=== PATIENT | female | born 1985 | race Caucasian/White ===

== ENCOUNTER 2018-10-04 05:07 | Inpatient (IN) | payer OTHER, SELFPAY ==
[2018-10-04] MEDS: Lactated Ringers 1,000 ML 50 ML IV ×2 (05:30→23:06)
[2018-10-04 06:13] VITALS: BMI 40.4
[2018-10-04 06:39] LABS: Absolute Lymphocyte Count 1.31 X10^3/ul (0.83-4.51); Absolute Neutrophil Count 3.6 X10^3/uL (2.0-7.7); Basophil# 0.01 X10^3/uL; Basophil% 0.2 % (0-1); Eosinophil# 0.05 X10^3/uL; Eosinophils% 0.9 % (0-5); Hematocrit 30.6 % (37-47); Lymphocyte # 1.31 X10^3/ul (4.0); Lymphocyte % 23.4 % (19-41); Mean Corp Hgb Conc 32.7 g/gl (32-36); Mean Corpuscular Hgb 30.2 pg (27.0-32.0); Mean Corpuscular Volume 92.4 fL (81-99); Mean Platelet Vol. 11.1 fl (6.2-12.0); Monocyte# 0.61 X10^3/uL; Monocyte% 10.9 % (0-10); Neutrophil % 64.2 % (47-70); Platelet Count 213 K/mm3 (150-450); RBC Distribution Width CV 13.7 % (11.6-14.6); RBC Distribution Width SD 45.8 fl (35.1-43.9); Red Blood Count 3.31 M/mm3 (4.2-5.4); White Blood Count 5.6 K/mm3 (4.4-11.0)
[2018-10-04 06:48] LABS: POSITIVE COUNT NO; POSITIVE DIFFERENTIAL NO; POSITIVE MORPHOLOGY NO
[2018-10-04] MEDS: miSOPROStol 25 MCG TABLET VAGINAL ×3 (07:56→15:54)
--- NOTE | 2018-10-04 09:00 | HP.PCM_ITS ---
- Problem List (1) Polyhydramnios affecting in third trimester Status: Acute (2) Edema during in third trimester Status: Acute History Date of Admission: 10/04/18 Final KT: 10/09/18 Final KT Source: US <20 weeks Gestational age: 39 Weeks and 2 Days History of this : This is a 33 year-old, G [1], P [0], at 39 weeks gestational age who presents for IOL for polyhydramnios and severe edema in 3rd trimester . Patient course started at 5 weeks x 21 visits. Patient reported rapidly increased swelling and weight gain in last month of - though she denies MANN, scotoma, SOB< chest pain, dizziness or RUQ pain. course has been uncomplicated. Allergies shellfish derived Allergy (Verified 10/04/18 06:09) Hives gluten Adverse Reaction (Verified 10/04/18 06:10) Diarrhea Home Medications: Home Medications Vits [Prenatabs FA] 1 tablet PO DAILY 10/04/18 Smoking Status: Former smoker Alcohol: None Number of Fetus(es): 1 Heart Tracing: Baseline 120, moderate variability, + accels, no decels TOCO Analysis: Uterine irritability and irregular ctx noted, not easily palpable History Past Pregnancies: Past Pregnancies Delivery Date Name GA/Weeks Outcome Route Weight Infant Gender Labor Length Anesthesia Delivery Location Provider FOB Labs: See [facility] - O+ bloodtype. GBS Negative. OB Panel WNL. STI screening and urine culture negative Expected Infant Delivery Method: Spontaneous Vaginal Describe any other labor & delivery plans:: [facility] though is open to pain medications if she requests them Number of Visits: 21 Review of Systems Constitutional: Denies: Chills, Fever, Weight Change HEENT: Denies: Head Aches, Sinus Congestion, Sinus Drainage Cardiovascular: Reports: Edema - +3/+3 in LE up to mid-thigh, generalized +1 edema noted. Denies: Chest Pain, Palpitations Respiratory: Denies: Cough, Shortness of breath at rest, Sputum production Gastrointestinal: Denies: Abdominal Pain, Nausea, Vomiting Genitourinary: Denies: Dysuria Gynecological: Denies: Vaginal bleeding, Vaginal discharge Musculoskeletal: Denies: Joint Pain, Joint Tenderness Skin: Denies: Rash, Wounds Neurological: Denies: Numbness, Tingling, Focal weakness Psychiatric: Denies: Anxiety, Depression, Homicidal Ideations, Suicidal Ideations Hematologic/ Lymphatic: Denies: Easy Bruising, Easy Bleeding Physical Exam Vitals: See nursing note for vital signs - Afebrile, Normotensive General: Alert, Oriented x3, No apparent distress HEENT: Atraumatic, Normocephalic. Negative for: Thyromegaly, Lymphadenopathy Cardiovascular: Regular rate, Regular Rhythm Lungs: Clear to auscultation, Normal air movement Abdomen: Bowel Sounds Present, Soft, Non Tender, Gravid - EFW = 8.5#, Appropriate for Gestational Age Neurological: Cranial nerves II-XII grossly intact, Deep Tendon Reflexes 2+/4 and Symmetrical - + 1 beat clonus bilateral, Neuro grossly intact [employer] SUPERINTENDENT: Normal external genitalia. Negative for: Vulvar lesions Estimated gestational size: Appropriate for gestational size Presentation: Cephalic Cervix Dilation (cm): 1.5 - Per last office exam 10/01/18 Station: -2 Effacement (%): 60 Assessment/Plan All Active Problems Polyhydramnios affecting in third trimester (Acute) Edema during in third trimester (Acute) This is a 33 year-old, G [1], P [0], at 39 weeks gestational age, IOL Polyhydramnios and Severe LE Edema. P: 1) Admit for cytotec IOL per protocol - Cytotec 25mcg PV placed at 0750 by nursing staff. Will redose q 4 hours 2) Consider placing cervical wasserman catheter with next Cytotec dose 3) Dr. Dilan BOWERS back-up physician appraised of plan of care 4) Continue present management Carmelina BELL
--- NOTE | 2018-10-04 12:08 | PCM.PN.OB ---
Patient Problems: Active and Suspected Problems Polyhydramnios affecting in third trimester (Acute) Edema during in third trimester (Acute) Subjective: Patient sitting up in bed, she reports increased frequency of uterine like cramping at this time. Patient denies SROM, denies vaginal bleeding. Reports +FM. Patient desires reassessment of cervix at this time to monitor for cervical change. Objective: VSS, Afebrile FHT baseline 120, moderate variability, + accels, no decels Ctx irregular q 2-5 minutes, mildly palpable SVE = Ext os 2cm, internal os 1.5/60/-2. Cervix posterior. - Physical Exam General: Alert, Oriented x3, Cooperative, No apparent distress HEENT: Atraumatic, Normocephalic Neck: Supple Lungs: Normal air movement Cardiovascular: Regular rate, Regular Rhythm Abdomen: Soft, Non Tender, Appropriate for Gestational Age Extremities: Capillary Refill Less than 3 Seconds, Edema - +2/+2 pitting edema in LE noted, Peripheral Pulses Normal Skin: No rashes, No breakdown Musculoskeletal: No Tenderness to Palpation of Joints or Extremities Neurological: Cranial nerves II-XII grossly intact Psych/Mental Status: Normal Affect, Appropriate Weight: 250 lb 10.649 oz Body Mass Index (BMI) 40.4 Laboratory Tests Past 24 Hrs 10/04/18 10/04/18 06:05 06:05 WBC 5.6 RBC 3.31 L Hgb 10.0 L Hct 30.6 L MCV 92.4 MCH 30.2 MCHC 32.7 RDW 13.7 RDW Differential 45.8 H Plt Count 213 MPV 11.1 Immature Gran % (Auto) 0.400 Neut % (Auto) 64.2 Lymph % (Auto) 23.4 [place] % (Auto) 10.9 H Eos % (Auto) 0.9 Baso % (Auto) 0.2 Absolute Neuts (auto) 3.6 Absolute Lymphs (auto) 1.31 Total Counted Not Reportable Blood Type O POSITIVE Antibody Screen NEGATIVE Medical Necessity - Tobacco Use Smoking Status: Former smoker Assessment/Plan All Active Problems Polyhydramnios affecting in third trimester (Acute) Edema during in third trimester (Acute) 33 y/o @ 39+2 weeks, IOL for Polyhydramnios, Category I FHT P: 1) Continue present management - Cytotec 25mcg PV q 4 hours 2) Patient still choosing to decline placement of cervical wasserman catheter at this time 3) Reassess for cervical change PRN Carmelina Chew COLOR SPECIALIST-CNM
[2018-10-04] MEDS: 0.9% Saline Lock 10 ML Syringe IV (19:58)
--- NOTE | 2018-10-04 20:14 | PN.OBGYN_ITS ---
Patient Problems: Active and Suspected Problems Polyhydramnios affecting in third trimester (Acute) Edema during in third trimester (Acute) Subjective: Patient sitting up in bed at this time, reports that contractions are starting to feel stronger and more regular. Patient desires a cervical recheck at this time. remains at bedside providing support for patient. Objective: VSS, Afebrile FHT baseline 120, moderate variability, + accels, no decels Ctx q 2-3 minutes, lasting 60 seconds, palpating moderately strong SVE = 3-4/80/-1 - Physical Exam General: Alert, Oriented x3, Cooperative HEENT: Atraumatic, Normocephalic Neck: Supple Lungs: Normal air movement Cardiovascular: Regular rate, No murmurs Abdomen: Non Tender, Gravid Extremities: Edema - +2/+2 reflexes in LE Neurological: Cranial nerves II-XII grossly intact, Deep Tendon Reflexes 2+/4 and Symmetrical Psych/Mental Status: Normal Affect, Appropriate Weight: 250 lb 10.649 oz Body Mass Index (BMI) 40.4 Laboratory Tests Past 24 Hrs 10/04/18 10/04/18 06:05 06:05 WBC 5.6 RBC 3.31 L Hgb 10.0 L Hct 30.6 L MCV 92.4 MCH 30.2 MCHC 32.7 RDW 13.7 RDW Differential 45.8 H Plt Count 213 MPV 11.1 Immature Gran % (Auto) 0.400 Neut % (Auto) 64.2 Lymph % (Auto) 23.4 [place] % (Auto) 10.9 H Eos % (Auto) 0.9 Baso % (Auto) 0.2 Absolute Neuts (auto) 3.6 Absolute Lymphs (auto) 1.31 Total Counted Not Reportable Blood Type O POSITIVE Antibody Screen NEGATIVE Medical Necessity - Tobacco Use Smoking Status: Former smoker Assessment/Plan All Active Problems Polyhydramnios affecting in third trimester (Acute) Edema during in third trimester (Acute) 33 y/o @ 39+2 weeks, IOL for Polyhydramnios, Category I FHT P: 1) Patient has made very good cervical change and esperanza regularly - plan for expectant management at this time 2) If contractions space out >4-5 minutes apart, will start IV pitocin 3) Reassess cervix PRN for cervical change with change in maternal or status Carmelina Chew FOREIGN CAR MECHANIC-CNM
[2018-10-04] MEDS: Ondansetron 4 MG/2 ML Vial IV (22:45)
[2018-10-04] MEDS: fentaNYL-bupivacaine (epidural) 100 ML BAG EPIDURAL (23:27)
--- NOTE | 2018-10-04 23:40 | PN.OBGYN_ITS ---
Patient Problems: Active and Suspected Problems Polyhydramnios affecting in third trimester (Acute) Edema during in third trimester (Acute) Subjective: Patient moaning with contractions, SROM for clear fluid occurred 2111. Soon after patient reports strong regular contractions started with increasing pressure and pain sensations. Patient's continues at bedside to provide support. Patient requested epidural due to intensity and pain of contractions; epidural placed without difficulty. Patient tolerated procedure well. Objective: VSS, Afebrile FHT baseline 120, moderate variability, + accels, no decels Ctx q 2-4 minutes, palpate moderately strong SVE = 4-5/90/-1 at last exam. Cervix midposition to posterior - Physical Exam General: Alert, Oriented x3, Cooperative HEENT: Atraumatic, Normocephalic Neck: Supple Abdomen: Soft, Non Tender Extremities: Edema Psych/Mental Status: Normal Affect, Appropriate - +2/+2 pitting edema in LE Weight: 250 lb 10.649 oz Body Mass Index (BMI) 40.4 Laboratory Tests Past 24 Hrs 10/04/18 10/04/18 06:05 06:05 WBC 5.6 RBC 3.31 L Hgb 10.0 L Hct 30.6 L MCV 92.4 MCH 30.2 MCHC 32.7 RDW 13.7 RDW Differential 45.8 H Plt Count 213 MPV 11.1 Immature Gran % (Auto) 0.400 Neut % (Auto) 64.2 Lymph % (Auto) 23.4 [place] % (Auto) 10.9 H Eos % (Auto) 0.9 Baso % (Auto) 0.2 Absolute Neuts (auto) 3.6 Absolute Lymphs (auto) 1.31 Total Counted Not Reportable Blood Type O POSITIVE Antibody Screen NEGATIVE Medical Necessity - Tobacco Use Smoking Status: Former smoker Assessment/Plan All Active Problems Polyhydramnios affecting in third trimester (Acute) Edema during in third trimester (Acute) 33 y/o @ 39+2 wks, IOL for Polyhydramnios, Active Labor, Category I FHT P: 1) Epidural placed, will place wasserman catheter once patient is comfortable 2) Continue expectant management at this time 3) Reassess for cervical change PRN with change to maternal or status 4) Consider initiation of pitocin augmentation IV per protocol if inadequate contractions noted Carmelina Chew APRN-CECLEIA
[2018-10-05] MEDS: fentaNYL-bupivacaine (epidural) 100 ML BAG EPIDURAL (03:33)
--- NOTE | 2018-10-05 05:00 | PCM.PN.OB ---
Patient Problems: Active and Suspected Problems Polyhydramnios affecting in third trimester (Acute) Edema during in third trimester (Acute) Subjective: Page received from nurse, repeat SVE done and patient was found to be complete at 0339. Patient to labor down and just started pushing now. Patient continues to remain comfortable with epidural at this time. Objective: FHT baseline 120, moderate variability, + accels, no decels Ctx q 2-3 minutes, palpate moderate to strong SVE = C/C/0 to +1 - Physical Exam General: Alert, Oriented x3 Weight: 250 lb 10.649 oz Body Mass Index (BMI) 40.4 Laboratory Tests Past 24 Hrs 10/04/18 10/04/18 06:05 06:05 WBC 5.6 RBC 3.31 L Hgb 10.0 L Hct 30.6 L MCV 92.4 MCH 30.2 MCHC 32.7 RDW 13.7 RDW Differential 45.8 H Plt Count 213 MPV 11.1 Immature Gran % (Auto) 0.400 Neut % (Auto) 64.2 Lymph % (Auto) 23.4 [place] % (Auto) 10.9 H Eos % (Auto) 0.9 Baso % (Auto) 0.2 Absolute Neuts (auto) 3.6 Absolute Lymphs (auto) 1.31 Total Counted Not Reportable Blood Type O POSITIVE Antibody Screen NEGATIVE Medical Necessity - Tobacco Use Smoking Status: Former smoker Assessment/Plan All Active Problems Polyhydramnios affecting in third trimester (Acute) Edema during in third trimester (Acute) 33 y/o @ 39+3 weeks, Second Stage of Labor, Category I FHT P: 1) Proceed with pushing at this time 2) Anticipate Carmelina Chew CHEESE PANCAKE ROLLER-CNM
--- NOTE | 2018-10-05 05:07 | PN.OBGYN_ITS ---
Patient Problems: Active and Suspected Problems Polyhydramnios affecting in third trimester (Acute) Edema during in third trimester (Acute) Subjective: Page received from nurse, repeat SVE done and patient was found to be complete at 0339. Patient to labor down and just started pushing now. Patient continues t o remain comfortable with epidural at this time. Objective: FHT baseline 120, moderate variability, + accels, no decels Ctx q 2-3 minutes, palpate moderate to strong SVE = C/C/0 to +1 - Physical Exam General: Alert, Oriented x3 Weight: 250 lb 10.649 oz Body Mass Index (BMI) 40.4 Laboratory Tests Past 24 Hrs 10/04/18 10/04/18 06:05 06:05 WBC 5.6 RBC 3.31 L Hgb 10.0 L Hct 30.6 L MCV 92.4 MCH 30.2 MCHC 32.7 RDW 13.7 RDW Differential 45.8 H Plt Count 213 MPV 11.1 Immature Gran % (Auto) 0.400 Neut % (Auto) 64.2 Lymph % (Auto) 23.4 [place] % (Auto) 10.9 H Eos % (Auto) 0.9 Baso % (Auto) 0.2 Absolute Neuts (auto) 3.6 Absolute Lymphs (auto) 1.31 Total Counted Not Reportable Blood Type O POSITIVE Antibody Screen NEGATIVE Medical Necessity - Tobacco Use Smoking Status: Former smoker Assessment/Plan All Active Problems Polyhydramnios affecting in third trimester (Acute) Edema during in third trimester (Acute) 33 y/o @ 39+3 weeks, Second Stage of Labor, Category I FHT P: 1) Proceed with pushing at this time 2) Anticipate Carmelina Chew APRN-CNRa
[2018-10-05] MEDS: Oxytocin 30 units/NS 500 ml 30 UNITS/500 ML IV.SOLN IV (06:35)
[2018-10-05] MEDS: Lactated Ringers 1,000 ML 50 ML IV (07:35)
--- NOTE | 2018-10-05 08:19 | PCM.PN.BLA ---
Progress Note Addendum: Patient pushing well with urge - 2nd stage pitocin started around 7am. C/C/+2 with mild caput and minimal molding noted. Patient has been pushing on and off for last [address] Dilan BOWERS for back-up OB consultation. Discussed that EFW = 8.5-8.75# and that baby is moving down well with push. Patient is starting to get more fatigued and pushing effort is not as effective as it had been. Pitocin currently at 8 milliunits currently. Discussion to check-up back in at 0900 if baby is not delivered for possible FAVD or VAVD to facilitate delivery of infant. FHT reassuring - category I FHT noted. Will continue to push with patient at this time. Carmelina BELL
--- NOTE | 2018-10-05 08:23 | PN_ITS ---
Progress Note Addendum: Patient pushing well with urge - 2nd stage pitocin started around 7am. C/C/+2 with mild caput and minimal molding noted. Patient has been pushing on and off for last [address] Dilan BOWERS for back-up OB consultation. Discussed that EFW = 8.5-8.75# and that baby is moving down well with push. Patient is starting to get more fatigued and pushing effort is not as effective as it had been. Pitocin currently at 8 milliunits currently. Discussion to check-up back in at 0900 if baby is not delivered for possible FAVD or VAVD to f acilitate delivery of infant. FHT reassuring - category I FHT noted. Will continue to push with patient at this time. Carmelina BELL
[2018-10-05] MEDS: Oxytocin 30 units/NS 500 ml 30 UNITS/500 ML IV.SOLN 334 UNITS IV (09:20)
--- NOTE | 2018-10-05 09:44 | PCM.OPRPT ---
Problem List (1) Polyhydramnios affecting in third trimester Status: Resolved (2) Edema during in third trimester Status: Resolved Report of Operation Date of Procedure: 10/05/18 Pre-Operative Diagnosis: IUP @ 39+ weeks, IOL for Polyhydramnios, Edema of in 3rd trimester Post-Operative Diagnosis: of viable boy baby Surgery/Procedure Performed:: Vaginal Delivery Type of Anesthesia:: Epidural Anesthesiologist: Stephania Domínguez - Admit VTE Documentation VTE Present on Admission: No VTE Pharm Prophylaxis ordered?: No Reason prophylaxis not ordered:: Treatment Not Indicated Vaginal Delivery Maternal Presentation: Medically Indicated Induction Method of Induction: Cytotec Medical Reason for Induction: Maternal Medical Condition: list: - Polyhydramnios Amniotic Membrane Rupture Type: Spontaneous Rupture of Membrane time: 10/04/18 @ 2111 Amniotic Fluid Description: Clear Final KT: 10/09/18 Final KT Source: US <20 weeks Gestational age: 39 Weeks and 3 Days Date of Procedure: 10/05/18 Pre-Operative Diagnosis: IOL @ 39+ weeks for Polyhydramnios, Edema in 3rd trimester Post-Operative Diagnosis: of viable boy baby Surgery/ Procedure Performed: Spontaneous Vaginal Delivery Anesthesiologist: Stephania Domínguez Type of Anesthesia: Epidural Description of Procedure: After pushing on and off for 4 hours, viable delivery of baby boy over intact perineum. Infant head delivered OA, restituted to LLUVIA and then LOT where anterior shoulder easily presented and delivered without difficulty. placed on maternal abdomen where baby had spontaneous cry and respirations. Mouth and nose bulb suctioned. dried and stimulated. Apgars 8 and 9. Umbilical cord clamped and cut once it stopped pulsing, cord blood collection completed secondary to maternal O+ bloodtype. Placenta delivered spontaneously via Casey mechanism intact with 3VC. Placental triage WNL. FF to massage, 3FB below umbilicus and midline. IV pitocin infusing per protocol for active management of the 3rd stage of labor. Upon inspection of vaginal vault, several vaginal side wall abrasions and bilateral periurethral abrasions with good hemostasis. No repair indicated. Sponge count correct. Vaginal sweep negative. Bonding and [id number] initiated. Patient desires to breastfeed. consultation ordered. Presentation: LLUVIA Placental Delivery Description: Spontaneous Placenta Disposition: [facility] Cord Vessel Description: 3 Vessels Cord Entanglement: None Estimated Blood Loss: 350 Infant A gender: Male (1 minute): 8 (5 minute): 9 Episiotomy Description: None Laceration: None Medications given after delivery: IV Pitocin Complications: None
[2018-10-05] MEDS: Oxytocin 30 units/NS 500 ml 30 UNITS/500 ML IV.SOLN 167 UNITS IV (09:47)
--- NOTE | 2018-10-05 10:11 | DCINST_ITS ---
Discharge Diet: No Restrictions Discharge Activity: Return to Normal Activity, May not drive while taking narcotic pain medications., May Shower May resume sexual activity in: 4-6 weeks Additional Activity Instructions:: Nothing in the vagina for 4-6 weeks. You may return to work/school in 6 weeks. Call your doctor if your incision/area has: Continuous Slow Oozing, Sudden Increased Bleeding, Increased Pain/ Swelling, Increased Redness, Foul Smelling Discharge Call your doctor if you observe: Fever of 101 or Higher, Inability to urinate, Inability to have a bowel movement, Using more than one pad per hour Additional Instructions: If you experience any of the following, contact your healthcare provider. * Bleeding that soaks a pad every hour for 2 hours * Fever 100.4 or higher * Unrelieved incision or abdominal pain * Swelling, redness, discharge or bleeding from your incision or episiotomy site * Your incision begins to separate * Problems urinating (including inability to urinate or burning while urinating). * Visual changes * Severe headache * Flu-like symptoms * Pain or redness in one of both of your breasts * Pain, warmth, tenderness or swelling in your legs, especially the calf area * Frequent nausea and vomiting * Symptoms of depression or anxiety If you experience any of the following, call 911 or go to the nearest Emergency Room. * Chest pain * Problems breathing * Seizure activity * Partial or complete paralysis of a body part, slurred speech, weakness or drooping of the face, or a sudden inability to walk or hold your balance Allergies/Adverse Reactions: Allergies shellfish derived Allergy (Verified 10/04/18 06:09) Hives gluten Adverse Reaction (Verified 10/04/18 06:10) Diarrhea Medications to take at Discharge Vits [Prenatabs FA] 1 tablet PO DAILY 10/04/18 Please Follow Up With: Carmelina Chew CNM When: Call to make an appointment with your provider in 2 weeks and 6 weeks . Primary Care Physician: Carmelina Chew CNM [Primary Care Provider] - Test Results: Test results from this visit will be discussed in further detail at your follow- up appointment, if applicable. Proposed Discharge Date: 10/07/18
[2018-10-05] MEDS: Acetaminophen 500 MG Tablet 1000 MG PO (11:27)
[2018-10-05 16:00] VITALS: BP 110/69; PULSE 85; RESP 16; TEMP 37.4
[2018-10-05] MEDS: Ibuprofen 600 MG Tablet PO ×2 (17:24→23:13)
[2018-10-05 18:00] VITALS: BP 121/82; PULSE 100; RESP 16; TEMP 36.9
[2018-10-05 20:10] VITALS: BP 124/78; PULSE 88; RESP 16; TEMP 37; O2SAT 98
[2018-10-06] VITALS: BP 112/67; PULSE 82; RESP 16; TEMP 36.8; O2SAT 99
[2018-10-06] MEDS: Senna/Docusate Sodium 1 Tablet PO ×2 (00:37→20:36)
[2018-10-06 04:10] VITALS: BP 118/80; PULSE 88; RESP 18; TEMP 36.8; O2SAT 98
[2018-10-06 06:28] LABS: Hematocrit 26.5 % (37-47); Hemoglobin 8.6 g/dl (12.0-15.0); Mean Corp Hgb Conc 32.5 g/gl (32-36); Mean Corpuscular Hgb 30.2 pg (27.0-32.0); Mean Platelet Vol. 10.5 fl (6.2-12.0); Platelet Count 174 K/mm3 (150-450); RBC Distribution Width CV 13.8 % (11.6-14.6); RBC Distribution Width SD 46.4 fl (35.1-43.9); Red Blood Count 2.85 M/mm3 (4.2-5.4)
[2018-10-06 06:41] LABS: Scan Indicated on CBC? Y/N NO
[2018-10-06] MEDS: Ibuprofen 600 MG Tablet PO ×3 (06:51→20:36)
[2018-10-06 09:03] VITALS: BP 119/74; PULSE 84; RESP 16; TEMP 37.1; O2SAT 98
--- NOTE | 2018-10-06 10:37 | PCM.PN.OB ---
Subjective: Patient sitting up in bed at this time eating breakfast. Patient and report feelings of being overwhelmed with the amount of providers and staff coming into room this morning over a short period of time. Reports that there has been a lot of information to take in over a short period of time. Patient and may be interested in discharge to home due to feelings of being overwhelmed and feeling they would be able to rest better at home. Patient reports that baby having inconsistent latching - baby has had multiple dirty diapers at this time however. Patient reports continued challenges with getting up out of bed secondary to feeling sore. Patient denies issues with urination, reports + flatus. Notes hesitancy with having a bowel movement. Patient and with many questions in anticipation of desired discharge to home today. Objective: VSS, Afebrile Nipples slightly flat, no ecchymoses or blisters noted bilaterally Abdomen NT x 4 quadrants, FF midline 3FB below umbilicus +2/4 reflexes in LE no clonus, +3/+3 pitting edema in LE Negative Calf Tenderness Scant rubra lochia, perineum intact, no perineal edema noted - Physical Exam General: Alert, Oriented x3, Cooperative HEENT: Atraumatic, Normocephalic Neck: Supple Lungs: Normal air movement Cardiovascular: Regular rate, Regular Rhythm Abdomen: Soft, Non Tender Extremities: Capillary Refill Less than 3 Seconds, Edema Skin: No rashes, No breakdown Musculoskeletal: No Tenderness to Palpation of Joints or Extremities Neurological: Cranial nerves II-XII grossly intact, Deep Tendon Reflexes 2+/4 and Symmetrical - +3/+3 pitting edema in LE, generalized edema in hands and face still noted Psych/Mental Status: Normal Affect, Appropriate Vital Signs Temp Pulse Resp BP Pulse Ox 98.7 F 84 16 119/74 98 10/06/18 09:03 10/06/18 09:03 10/06/18 09:03 10/06/18 09:03 10/06/18 09:03 Oxygen Delivery Method Room Air Weight: 250 lb 10.649 oz Body Mass Index (BMI) 40.4 Intake and Output for Last 24 Hours 10/04/18 10/05/18 10/06/18 23:59 23:59 23:59 Intake Total 2655 / 2655 Output Total 1500 / 1500 Balance 1155 / 1155 Laboratory Tests Past 24 Hrs 10/06/18 06:05 WBC 9.0 RBC 2.85 L Hgb 8.6 L Hct 26.5 L MCV 93.0 MCH 30.2 MCHC 32.5 RDW 13.8 RDW Differential 46.4 H Plt Count 174 MPV 10.5 Medical Necessity - Tobacco Use Smoking Status: Former smoker Assessment/Plan All Active Problems Polyhydramnios affecting in third trimester (Resolved) Edema during in third trimester (Resolved) 33 y/o now, s/p following IOL for Polyhydramnios, PPD #1 P: 1) Recommendation for discharge to home tomorrow or later this afternoon 2) Consultation 3) Continue current PP orders at this time 4) Continue supporting patient and partner - continue providing PP anticipatory teaching a little at a time so as couple does not feel as overwhelmed Carmelina BELL
[2018-10-06 14:15] VITALS: BP 124/67; PULSE 88; RESP 16; TEMP 36.8; O2SAT 99
[2018-10-06 20:25] VITALS: BP 122/74; PULSE 85; RESP 18; TEMP 37.1
[2018-10-07 01:57] VITALS: BP 113/66; PULSE 83; RESP 16; TEMP 37.1
[2018-10-07] MEDS: Ibuprofen 600 MG Tablet PO ×2 (05:11→11:13)
--- NOTE | 2018-10-07 06:41 | NURSING ---
0640-pt had marked one day for #2-circled feeling down and #6.
[2018-10-07 07:47] VITALS: BP 124/81; PULSE 85; RESP 18; TEMP 36.9
--- NOTE | 2018-10-07 08:58 | PCM.PN.OB ---
Subjective: Doing well per patient and nursing staff. Ambulating and taking PO without difficulty. Voiding and passing flatus. and using nipple shield, complaint of cracked nipples. Denies MANN, vis changes, chest pain, SOB, increased vaginal bleeding or clots. Pain controlled. Planning D/C home today. - Physical Exam General: Alert, Oriented x3 HEENT: Atraumatic, Normocephalic Lungs: Clear to auscultation, Normal air movement, No rhonchi, No wheeze Cardiovascular: Regular rate, Regular Rhythm, No murmurs Abdomen: Bowel Sounds Present, Soft, - - Fundus firm 3 below u Extremities: No edema Psych/Mental Status: Normal Affect, Appropriate Comment: Bilateral nipples with excoriated area above and below nipple. Vital Signs Temp Pulse Resp BP Pulse Ox 98.4 F 85 18 124/81 H 99 10/07/18 07:47 10/07/18 07:47 10/07/18 07:47 10/07/18 07:47 10/06/18 14:15 Oxygen Delivery Method Room Air Weight: 250 lb 10.649 oz Body Mass Index (BMI) 40.4 Intake and Output for Last 24 Hours 10/05/18 10/06/18 10/07/18 23:59 23:59 23:59 Intake Total 2655 / 2655 Output Total 1500 / 1500 Balance 1155 / 1155 Medical Necessity - Tobacco Use Smoking Status: Former smoker Assessment/Plan All Active Problems Polyhydramnios affecting in third trimester (Resolved) Edema during in third trimester (Resolved) A: PPD #2 P: 1) Planning D/C home today. Discharge instructions reviewed. Follow up in 2 and 6 weeks 2) Evaluated nipples and discussed changing nipple shield placement as possible cause of nipple excoriation. 3) Ferrous Sulfate 325mg PO BID for hgb 8.6.
--- NOTE | 2018-10-07 10:19 | CASEMGMT ---
Addendum entered and electronically signed by Trudy Gregorio 10/08/18 09:39: Reviewed and approve HOME OFFICE REPRESENTATIVE student documentation below. -ZAYDA Crandall, INSIDE METER TESTER Original Note: Social work Labor and Delivery Date of Referral: 10/07/18 Time of Referral: 06 Referred by: Dr Chew Date of Intervention: 10/07/18 Time of Intervention: 0935am Reason for referral: PHQ9 <5 History obtained from: medical record, mother of baby Suzy Dunne (MOB) and father of baby (FOB) Boo Dunne Household Composition: MOB and FOB live together. MOB denies any safety concerns in the home or domestic violence history with FOB. Patients parent/guardian status: MOB and FOB have been together for 4 years. This is the first child for both MOB and FOB. Medical History: ALEX is to 1 after the of baby Anna. MOB began PNC at 5 weeks. Baby Anna was born on 10/05/18 at 8lbs and 5oz with scores of 8 and 9. Educational Status: MOB and FOB report to have both graduated high school. They confirm to read, write, and comprehend. Financial Status: MOB and FOB work together at the [employer] in the [employer]. MOB has 12 weeks off work. FOB will be working 2 days a week for the next 12 weeks. supplies: MOB and FOB report to have a car seat, pack n play, bassinet attachment, clothing, diapers, wipes, and a breast pump. Childcare/givers: MOB and FOB will be primary childcare givers. MOB's mother will be supplemental caregiver. Transportation: MOB and FOB denied any transportation issues as they both drive and have a reliable vehicle. Programs/agencies involved: MOB and FOB are not connected with any agencies. MOB and FOB denied [facility] referral. Children Services/Legal issues: MOB and FOB denied any history with children services or legal issues. Behavioral Health Issues: Mental Health History: ALEX has been diagnosed with anxiety and depression in 2007. ALEX is not currently taking medication and reports to be doing well. MOB stopped medication November of 2014. MOB denied any thoughts, feelings, or attempts with suicide during or outside . MOB had negative depression screen on 07/17/18 at PNC visit. Substance Use History: MOB denied any history of substance abuse. MOB reported to have tried ecstasy at age 17 one time. Family History: MOB did not identify any family history of concern. Drug Screens: MOB tested negative at [facility] visit on 02/08/18 PHQ9: MOB answered several days to feeling down, depressed or hopeless. MOB also answered several days to feeling bad about self. MOB answered not at all to questions regarding having little interest, troubles sleeping, having low energy, troubles concentrating, moving slowly or quickly, or feeling better off . MOB reported that the feeling of being down was on 10/06/18 as was becoming increasingly difficult. MOB reported to have been feeling inadequate for baby to feed as Anna's weight dropped to the 95th percentile. MOB reported to have been feeling much better today 10/07/18 with the help of nurses and . Family/Social Stressor: MOB and FOB did not report any stressors at this time. Support systems: MOB and FOB reported to have large support system including large family and friends group. PPD/Shaken baby/ Safe sleeping: MOB and FOB reviewed PPD packet with social media job titles leadership intern. MOB and FOB confirmed understanding and showed interest. MOB and FOB also reported safe understanding of precautions for safe sleeping. When shaken baby was brought up to topic, FOB became tearful and held baby Anna closer to self. FOB reported that could not imagine doing that and having feelings of sadness for babies who experience it. Both FOB and MOB reported to understand precautions and safety measures to avoid shaken baby syndrome. ASSESSMENT: MOB and FOB were in the room together with ramu Castillo. MOB and FOB were calm, pleasant, and attentive for duration of conversation. MOB and FOB answered all questions appropriately. FOB left room after general information was covered so MOB could speak privately. MOB reported to be doing well with anxiety and depression. MOB denied any feelings of depression during and reported to feeling a little anxious at times. MOB reported anxiety increased slightly toward end of but did not have trouble coping. MOB reported coping skills to include speaking with FOB and being able to talk through feelings. MOB denied any substance abuse or alcohol usage during . MOB reported to have tried ecstasy at age 17 and has not tried or planned to experiment with drugs ever again. MOB reported to use alcohol socially outside of and enjoys wine. MOB did not report any stresors at this time and is looking forward to returning home. PLAN: MOB to home with baby. Social work provided PPD packet, [facility] resources, and WIC/HMG information. No other services indicated or requested at this time. -Nikki Montilla, HOME OFFICE REPRESENTATIVE Student Fashion Buyer.
[2018-10-07] MEDS: Senna/Docusate Sodium 1 Tablet PO (11:13)
[2018-10-07 13:30] VITALS: BP 123/65; PULSE 76; RESP 16; TEMP 36.7
--- NOTE | 2018-10-07 20:03 | NURSING ---
VS completed and discharged pt for МАРИЯ Rice primary care nurse.
== END 2018-10-07 14:00 | disposition home or self-care (01) | DRG 807 ==
PROVIDERS: Obstetrics & Gynecology; Admitting Provider Obstetrics & Gynecology; Family Provider Advanced Practice Midwife; PCP Advanced Practice Midwife; Referring Provider Obstetrics & Gynecology; Visit Provider Obstetrics & Gynecology
DX: O40.3XX0 Polyhydramnios, third trimester, not applicable or unspecified (principal); Z37.0 Single live birth; O12.04 Gestational edema, complicating childbirth; Z3A.39 39 weeks gestation of pregnancy; Z87.891 Personal history of nicotine dependence
CPT/HCPCS: 59025; 59050; 85025; 85027; 86850; 86900; 99218; J7120; A4216; G0378; J2405

== ENCOUNTER 2021-01-15 09:30 | Outpatient (CLI) | payer OTHER, SELFPAY ==
[2021-01-12 09:02] VITALS: BMI 34.7
[2021-01-15 09:39] VITALS: BP 129/69; PULSE 106; TEMP 36.8
[2021-01-15 09:45] VITALS: BMI 41.8
--- NOTE | 2021-01-16 12:15 | OB.TRI.NOTE ---
HPI - General HPI Narrative JOAO PÉREZ, is a 35 F who presents with decreased FM. PFSH PFSH Home Medications vit,[id number] 1 tab PO DAILY 10/04/18 [History Last Taken 01/14/21] Allergy/AdvReac Type Severity Reaction Status Date / Time shellfish derived Allergy Hives Verified 10/04/18 06:09 gluten AdvReac Diarrhea Verified 10/04/18 06:10 Social History Smoking Status: Former smoker History Elective abortions Hx Para 0 Spontaneous abortions Hx # Term Pregnancies Ectopic pregnancies Hx # Pregnancies Multiple births # of living children NST FHR Rate Baby A Baseline: 145 Variability:: Moderate Accelerations:: 15 x 15 Decelerations:: Variable NST Reactive:: Yes Uterine Activity:: quiet Assessment & Plan (1) Polyhydramnios affecting in third trimester: COMMENT: 37&4 PLAN: reactive NST for decreased FM
== END 2021-01-15 10:16 | disposition home or self-care (01) ==
LOC: WPOUT 09:34 → WP 09:35
PROVIDERS: Referring Provider Obstetrics & Gynecology; Visit Provider Obstetrics & Gynecology
DX: O40.3XX0 Polyhydramnios, third trimester, not applicable or unspecified (principal); Z3A.37 37 weeks gestation of pregnancy; Z87.891 Personal history of nicotine dependence
CPT/HCPCS: 59025; 59050; 99218; G0378

== ENCOUNTER 2021-01-24 07:18 | Inpatient (IN) | payer OTHER, SELFPAY ==
[2020-12-13 13:01] VITALS: BMI 34.7
[2021-01-24] VITALS (97 sets, daily range): BP systolic 99–151; BP diastolic 49–82; PULSE 75–127; TEMP 36.6–37.2; O2SAT 80–100; BMI 41.5
[2021-01-24] MEDS: Lactated Ringers 500 ML 999 ML IV ×2 (08:05→13:52)
[2021-01-24] MEDS: Lactated Ringers 1,000 ML 50 ML IV (08:26)
[2021-01-24 08:39] LABS: Absolute Lymphocyte Count 1.26 X10^3/uL (0.83-4.51); Absolute Neutrophil Count 4.7 X10^3/uL (2.0-7.7); Basophil# 0.02 X10^3/uL; Basophil% 0.3 % (0-1); Eosinophil# 0.05 X10^3/uL; Eosinophils% 0.8 % (0-5); Hematocrit 34.9 % (37-47); Hemoglobin 11.4 g/dL (12.0-15.0); Lymphocyte # 1.26 X10^3/ul (0.83-4.51); Lymphocyte % 19.1 % (19-41); Mean Corp Hgb Conc 32.7 g/dL (32-36); Mean Corpuscular Hgb 30.6 pg (27.0-32.0); Mean Corpuscular Volume 93.6 fL (81-99); Monocyte# 0.52 X10^3/uL; Monocyte% 7.9 % (0-10); NRBC Flagged by Analyzer 0 % (0-5); Neutrophil # 4.67 X10^3/uL (2.7-7.7); Neutrophil % 70.5 % (47-70); Platelet Count 232 K/mm3 (150-450); Red Blood Count 3.73 M/mm3 (4.2-5.4); White Blood Count 6.6 K/mm3 (4.4-11.0)
[2021-01-24 09:48] LABS: AST(SGOT) 14 U/L (15-37); Alanine Aminotransfer ALT/SGPT 14 U/L (13-56); Creatinine, Serum 0.45 mg/dL (0.55-1.02); EST Glomerular Filtration Rate 168 mL/min (>60); Est Glom Filt Rate - Afr Amer 204 mL/min (>60); Estimated Creatinine Clearance 158.51 ml/min; Uric Acid 3.4 mg/dL (2.6-6.0)
[2021-01-24] MEDS: Oxytocin 30 units/NS 500 ml 30 UNITS/500 ML IV.SOLN IV (09:49)
[2021-01-24 10:14] LABS: Protein, Urine (Random) 36.4 mg/dL (<11.9); Protein:Creat Ratio 365 mg/g CRE (0-200)
[2021-01-24] MEDS: fentaNYL-bupivacaine (epidural) 100 ML BAG EPIDURAL ×2 (15:57→19:32)
[2021-01-24] MEDS: Lactated Ringers 1,000 ML 200 ML IV (17:18)
[2021-01-24] MEDS: Ondansetron 4 MG/2 ML Vial IV (17:51)
--- NOTE | 2021-01-24 18:48 | HP.PCM.OB_ITS ---
HPI - General General Date of Admission: 01/24/21 HPI Narrative JOAO PÉREZ, 5 para 1-0-2-1 with EDC of 02/01/2021 presents for induction of labor due to polyhydramnios. She denies any vaginal bleeding or leaking of fluid. She is had good movement. Past medical history is significant for trichotillomania, anxiety and history of depression. She has a history of revision of her vulvovaginal scar from her previous vaginal delivery. Maternal Data Information Final KT: 02/01/21 Gestational age: 38 6/7 PFSH PFS Medical History (Updated 01/24/21 @ 18:[address] Maria Kong MD) Family history of hearing loss at age younger than 7 years Polyhydramnios depression Trichotillomania Home Medications vit,[id number] 1 tab PO DAILY 10/04/18 [History Last Taken 01/23/21 21:00] acetaminophen [Tylenol] 650 mg PO Q6H PRN 01/24/21 [History Last Taken 01/23/21 21:00] calcium carbonate [Tums] 300 mg PO DAILY PRN 01/24/21 [History Last Taken 01/23/21 21:00] Allergy/AdvReac Type Severity Reaction Status Date / Time shellfish derived Allergy Hives Verified 01/24/21 08:08 Surgical History (Updated 01/24/21 @ 09:23 by Nikki Blanc) History of surgery Social History Smoking Status: Never smoker History Elective abortions Hx Para 1 Spontaneous abortions Hx # Term Pregnancies Ectopic pregnancies Hx # Pregnancies Multiple births # of living children ROS Constitutional Constitutional: Denies fatigue, fever(s) or malaise Eyes Eyes: Denies change in vision ENT HEENT: Denies dizziness or headache(s) Cardiovascular Cardiovascular: Denies chest pain, dyspnea or lightheadedness Respiratory/Chest Respiratory/Chest: Denies cough or dyspnea Gastrointestinal Gastrointestinal: Denies change in bowel habits Genitourinary Genitourinary: Denies burning urination or genital lesions Integumentary Integumentary: Denies rash Neurologic Neurologic: Denies confusion, dizziness, headache(s), numbness or weakness Psychiatric Psychiatric: Reports anxiety Vital Signs Vital Signs Vital Signs: 01/24/21 07:34 01/24/21 08:05 01/24/21 08:46 Temperature 98.8 F Temperature Source Pulse Rate 127 H 116 H 105 H Blood Pressure 137/74 H 131/79 H 132/75 H BP Systolic 137 131 132 BP Diastolic 74 79 75 Pulse Ox 97 01/24/21 09:46 01/24/21 09:52 01/24/21 10:24 Temperature 98.3 F Temperature Source Pulse Rate 97 93 Blood Pressure 134/78 H 129/77 H BP Systolic 134 129 BP Diastolic 78 77 Pulse Ox 01/24/21 12:14 01/24/21 12:52 01/24/21 12:56 Temperature 98.5 F 98.9 F Temperature Source Pulse Rate 109 H 83 92 Blood Pressure 135/78 H BP Systolic 135 132 BP Diastolic 78 Pulse Ox 98 01/24/21 14:16 01/24/21 14:32 01/24/21 14:38 Temperature Temperature Source Pulse Rate 89 90 99 Blood Pressure 134/78 H 141/80 H 133/68 H BP Systolic 134 141 133 BP Diastolic 78 80 68 Pulse Ox 97 98 01/24/21 14:42 01/24/21 14:45 01/24/21 14:47 Temperature Temperature Source Pulse Rate 91 98 93 Blood Pressure 151/69 H 151/82 H BP Systolic 151 151 BP Diastolic 69 82 Pulse Ox 98 01/24/21 14:50 01/24/21 14:52 01/24/21 14:55 Temperature Temperature Source Pulse Rate 97 100 101 H Blood Pressure 134/65 H BP Systolic 134 BP Diastolic 65 Pulse Ox 98 97 01/24/21 14:58 01/24/21 15:00 01/24/21 15:01 Temperature Temperature Source Pulse Rate 98 98 101 H Blood Pressure 111/60 111/63 BP Systolic 111 111 BP Diastolic 60 63 Pulse Ox 96 01/24/21 15:02 01/24/21 15:05 01/24/21 15:07 Temperature 98.0 F Temperature Source Temporal Pulse Rate 98 92 110 H Blood Pressure 105/61 BP Systolic 105 BP Diastolic 61 Pulse Ox 94 98 01/24/21 15:10 01/24/21 15:11 01/24/21 15:15 Temperature Temperature Source Pulse Rate 106 H 96 104 H Blood Pressure 114/63 BP Systolic 114 BP Diastolic 63 Pulse Ox 98 98 01/24/21 15:18 01/24/21 15:20 01/24/21 15:22 Temperature Temperature Source Pulse Rate 95 90 89 Blood Pressure 125/60 H 112/56 L BP Systolic 125 112 BP Diastolic 60 56 Pulse Ox 99 01/24/21 15:25 01/24/21 15:27 01/24/21 15:31 Temperature Temperature Source Pulse Rate 100 118 H 104 H Blood Pressure 110/63 BP Systolic 110 BP Diastolic 63 Pulse Ox 99 91 01/24/21 15:35 01/24/21 15:36 01/24/21 15:40 Temperature Temperature Source Pulse Rate 85 109 H Blood Pressure 133/61 H BP Systolic 133 BP Diastolic 61 Pulse Ox 99 100 01/24/21 15:43 01/24/21 15:45 01/24/21 15:47 Temperature Temperature Source Pulse Rate 96 86 97 Blood Pressure 119/64 120/66 BP Systolic 119 120 BP Diastolic 64 66 Pulse Ox 100 01/24/21 15:50 01/24/21 15:52 01/24/21 15:55 Temperature Temperature Source Pulse Rate 95 101 H 86 Blood Pressure 116/59 L BP Systolic 116 BP Diastolic 59 Pulse Ox 100 100 01/24/21 15:57 01/24/21 16:00 01/24/21 16:05 Temperature Temperature Source Pulse Rate 94 99 80 Blood Pressure 115/55 L BP Systolic 115 BP Diastolic 55 Pulse Ox 100 100 01/24/21 16:10 01/24/21 16:15 01/24/21 16:20 Temperature Temperature Source Pulse Rate 98 112 H 118 H Blood Pressure BP Systolic BP Diastolic Pulse Ox 100 100 100 01/24/21 16:23 01/24/21 16:25 01/24/21 16:30 Temperature Temperature Source Pulse Rate 77 79 109 H Blood Pressure BP Systolic BP Diastolic Pulse Ox 90 96 99 01/24/21 16:35 01/24/21 16:40 01/24/21 16:45 Temperature 98.2 F Temperature Source Pulse Rate 86 113 H 97 Blood Pressure BP Systolic BP Diastolic Pulse Ox 100 98 97 01/24/21 16:50 01/24/21 16:55 01/24/21 16:58 Temperature Temperature Source Pulse Rate 98 97 91 Blood Pressure 113/59 L BP Systolic 113 BP Diastolic 59 Pulse Ox 100 98 01/24/21 17:00 01/24/21 17:05 01/24/21 17:10 Temperature Temperature Source Pulse Rate 77 105 H 79 Blood Pressure BP Systolic BP Diastolic Pulse Ox 99 98 99 01/24/21 17:15 01/24/21 17:20 01/24/21 17:25 Temperature Temperature Source Pulse Rate 114 H 106 H 111 H Blood Pressure BP Systolic BP Diastolic Pulse Ox 99 98 99 01/24/21 17:30 01/24/21 17:32 01/24/21 17:35 Temperature Temperature Source Pulse Rate 75 101 H 112 H Blood Pressure BP Systolic BP Diastolic Pulse Ox 99 94 98 01/24/21 17:40 01/24/21 17:45 01/24/21 17:50 Temperature Temperature Source Pulse Rate 96 79 107 H Blood Pressure BP Systolic BP Diastolic Pulse Ox 97 99 99 01/24/21 17:55 01/24/21 17:58 01/24/21 18:00 Temperature Temperature Source Pulse Rate 97 95 92 Blood Pressure 110/56 L BP Systolic 110 BP Diastolic 56 Pulse Ox 97 98 01/24/21 18:02 Temperature Temperature Source Pulse Rate 94 Blood Pressure BP Systolic BP Diastolic Pulse Ox 93 Weight Weight: 115 kg Body Mass Index (BMI) 41.5 Physical Exam Const alert and no apparent distress General Appearance: cooperative HEENT normocephalic Resp normal respiratory effort Cardio regular rate GI soft to palpation GI Narrative: gravid, nontender, appropriate for gestational age Extremity no calf tenderness General Extremity: edema Skin no wounds Rashes: No rashes noted Psych activity/motor behavior normal Labs Labs Labs: Blood Type O POSITIVE Antibody Screen NEGATIVE Hct 34.9 % (37-47) L Hgb 11.4 g/dL (12.0-15.0) L Rhogam given: No Assessment & Plan (1) Polyhydramnios affecting in third trimester: COMMENT: 37&4 (2) 38 weeks gestation of : (3) Supervision of other high risk pregnancies, third trimester: PLAN: 35-year-old high risk multigravida. Polyhydramnios. Maternal obesity with BMI of 41. Risk benefits alternatives to induction of labor dis cussed with the patient, questions were answered to her satisfaction she desires to proceed. Estimated weight is less than 4500 g and pelvis clinically adequate to expect vaginal delivery.
[2021-01-24] MEDS: Oxytocin 30 units/NS 500 ml 30 UNITS/500 ML IV.SOLN 334 UNITS IV (20:02)
--- NOTE | 2021-01-24 20:37 | EX.PCM.OBRPT ---
Assessment & Plan (1) (spontaneous vaginal delivery): (2) Delivery outcome of liveborn : (3) Second degree laceration of perineum, delivered, current hospitalization: Maternal Data Information Final KT: 02/01/21 Gestational age: 38 6/7 Vaginal Delivery Maternal Presentation Maternal Presentation: Medically Indicated Induction Maternal Presentation: polyhydramnios, preeclampsia without severe features Type of Induction: Pitocin and Amniotomy Operative Information Date of Procedure: 01/24/21 Pre-Operative Diagnosis: labor Post-Operative Diagnosis: same Surgery / Procedure Performed: Spontaneous Vaginal Delivery Type of Anesthesia: Epidural Special Medications: none Drain: Peralta to straight drain Estimated Blood Loss: 500 Time of Delivery: 20:00 Findings Description of Procedure: A vigorous female infant was delivered CUBA over a second-degree perineal laceration. A loose nuchal cord ?1 was easily reduced. The remainder the infant was delivered with maternal pushing and gentle traction only in less than 15 seconds. The Pitocin infusion was initiated for active management of the third stage. The cord was clamped and cut after 1 minute. The was attended to by the waiting nursing staff. After 19 minutes, they began to be some active bleeding from the cervix. Decision was made to proceed with manual extraction of the placenta. It was removed intact. Another pass was made to ensure no further tissue remained. The uterus was then firm. The cervix and vagina were intact. The second-degree perineal laceration was repaired with 3-0 Vicryl suture in a running standard fashion. It is noted that the tissue was very edematous and friable. Needle jackson were bleeding. After I completed the laceration, there was still bleeding in the bed of the laceration and 2 [id number] 2-0 Vicryl sutures were used to obtain hemostasis. Sponge and needle counts were correct. A vaginal sweep was completed by me. Presentation: CUBA Amniotic Membrane Rupture Type: Artificial Amniotic Fluid Description: Clear Placental Delivery Description: Manual Removal Placenta Disposition: [facility] Cord Vessel Description: 3 Vessels Cord Entanglement: Around neck x 1, loose Nuchal Cord Compression: Without compression Infant A Gender: Female (Elsy) (1 minute): 8 (5 minute): 10 Delayed Cord Clamping: Yes Post Vaginal Delivery Medications Given After Delivery: IV Pitocin Episiotomy Description: None Laceration: 2nd degree Admit VTE Documentation VTE Present on Admission: No VTE Mechan Device Prophylaxis: SCD's VTE Pharm Prophylaxis Ordered: No Reason Prophylaxis Not Ordered: Treatment Not Indicated
[2021-01-24] MEDS: Cefazolin 2 GM in 0.9% Normal Saline 100 ML IV (23:00)
[2021-01-25] VITALS (9 sets, daily range): BP systolic 114–143; BP diastolic 55–78; PULSE 79–93; RESP 16–18; TEMP 36.5–36.9; O2SAT 95–99
[2021-01-25] MEDS: 0.9% Saline Lock 10 ML Syringe IV (00:24)
[2021-01-25] MEDS: Acetaminophen 500 MG Tablet 1000 MG PO (03:49)
--- NOTE | 2021-01-25 07:35 | PN.OBGYN_ITS ---
Subjective Subjective Pain well controlled, average lochia. Denies MANN or visual changes Objective Data Objective Data Vital Signs: Vital Signs Temp Pulse Resp BP Pulse Ox 98 F 82 16 114/55 L 99 01/25/21 03:30 01/25/21 03:30 01/25/21 03:30 01/25/21 05:20 01/25/21 03:30 Oxygen Delivery Method Room Air Weight: 115 kg Body Mass Index (BMI) 41.5 Intake & Output: Intake and Output for Last 24 Hours 01/23/21 01/24/21 01/25/21 23:59 23:59 23:59 Intake Total 4739.94 / 4739.94 Output Total 1050 / 1050 1350 / 1350 Balance 3689.94 / 3689.94 -1350 / -1350 Lab / Micro Data Result Diagrams: 01/24/21 08:05 01/24/21 08:15 Labs: Laboratory Results - last 24 hr 01/24/21 08:05: WBC 6.6, RBC 3.73 L, Hgb 11.4 L, Hct 34.9 L, MCV 93.6, MCH 30.6, MCHC 32.7, RDW Std Deviation 47.0 H, RDW Coeff of Lora 14.0, Plt Count 232, MPV 11.0, Immature Gran % (Auto) 1.400 H, Neut % (Auto) 70.5 H, Lymph % (Auto) 19.1, Clayton % (Auto) 7.9, Eos % (Auto) 0.8, Baso % (Auto) 0.3, Absolute Neuts (auto) 4.7, Absolute Lymphs (auto) 1.26, Nucleated RBC % 0 01/24/21 08:05: Blood Type O POSITIVE, Antibody Screen NEGATIVE 01/24/21 08:15: Creatinine 0.45 L, Estim Creat Clear Calc 158.51, Est GFR (MDRD) Af Amer 204, Est GFR (MDRD) Non-Af 168, Uric Acid 3.4, AST 14 L, ALT 14 01/24/21 09:10: U Random Total Protein 36.4 H, Urine Creatinine 99.70, Protein/Creatinin Ratio 365 H Physical Exam Narrative 2+ DTRs, no clonus, 1+ edema Const alert and no apparent distress Narrative: Fundus firm, below umbilicus. Assessment & Plan (1) (spontaneous vaginal delivery): PLAN: day #1. Patient and doing well. Blood pressures are stable. Monitor for now. If patient and do well, likely discharge home tomorrow. Patient is working on breast-feeding.. (2) Pre-eclampsia, mild, delivered:
[2021-01-25] MEDS: Senna/Docusate Sodium 1 Tablet PO (08:38)
[2021-01-25] MEDS: Ibuprofen 600 MG Tablet PO ×2 (08:38→15:35)
[2021-01-25 14:10] LABS: Hematocrit 32.1 % (37-47); Hemoglobin 10.5 g/dL (12.0-15.0); Mean Corp Hgb Conc 32.7 g/dL (32-36); Mean Corpuscular Hgb 30.7 pg (27.0-32.0); Mean Corpuscular Volume 93.9 fL (81-99); Mean Platelet Vol. 10.9 fl (6.2-12.0); Platelet Count 220 K/mm3 (150-450); RBC Distribution Width CV 14.3 % (11.6-14.6); RBC Distribution Width SD 48.4 fl (35.1-43.9); Red Blood Count 3.42 M/mm3 (4.2-5.4); White Blood Count 8.9 K/mm3 (4.4-11.0)
--- NOTE | 2021-01-25 17:45 | CASEMGMT ---
Social Work Assessment Labor and Delivery Unit Patient Address: [address] [place], [place] [id number] Phone number: [phone] Date of Referral: 01/24/2021 Time of Referral: 2314 Referred By: Dr. Maria Kong Date of Intervention: 01/25/2021 Time of Intervention: 1744 Reason for Referral: History of depression History obtained from: Medical records and mother of baby (MOB) Suzy Dunne; father of baby (FOB) Boo Dunne also present for part of conversation. Household composition: MOB, FOB, and older son live in family residence. Intent for to reside in his home as well. Home situation is reported as safe and adequate. Patient's parent/guardian status: ALEX is a 35-year-old female, to the FOB who is age 42. Parents have been together since 2014. During private conversation with the MOB, MOB denies any history or concern regarding domestic violence issues. MOB and FOB now have 2 children together. Anna was born 4 and girl, Mee Whyte but who will be called Evita was born on 01/24/2021. Medical History: ALEX is 5, para 1 now 2 after delivering Mee Whyte on 01/25/2020. care started at 7 weeks gestation. Delivery occurred at 38 weeks. Apgars 8 and 10 at 1 and 5 minutes of life. weight 7 pounds 2 ounces. MOB with preeclampsia during this . Educational Status: ALEX has no issues with reading, writing, or learning comprehension. Financial Status: MOB and FOB are both employed by the [employer]. 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 MOB and FOB identify having a safe sleep space and a car seat for the baby as well. ALEX is planning to breast-feed and has a breast pump. Childcare/Caregiver(s): MOB and FOB will be the primary caregivers of this . Will be looking at childcare for when MOB and FOB are both working. MOB will be off for 3 months and the FOB for 2 months in this timeframe. Transportation: No reported concerns. Programs/Agencies Involved: No agency involvement. Children Services/Legal Issues: No reported history. Behavioral Health Issues: Mental Health History: MOB reports history of anxiety and depression since teen years. Reports history of trichotillomania and depression. Reports around the age of 19 had some suicidal ideation, but denies any attempt history. Denies any thoughts of suicide since about the age of 19. MOB reports that during her depression after Anna was born, the trichotillomania did flareup. MOB reports being outside taking long walks were very helpful to mitigate MOB is trichotillomania. MOB does have a history of medication and not currently treated. [place] depression screen completed during this assessment with a score of 3 which is below the threshold of depression. Substance Use History: MOB denies any substance use issues. FOB also denies. Per prior social work assessment, during last delivery, MOB did endorse a history of trying ecstasy at the age of 17, but no other substance use identified. Family History: Record indicates the MOB maternal grandfather has a history of alcohol use issues. FOB reports to have some depression, being on medication, and currently in counseling with the [facility]. Drug Screens: Maternal drug screen on 06/21/2020 negative. No further testing. Family/Social Stressors: MOB and FOB both experienced depression and anxiety. However both report they have done work to address, and to continue to address their emotional health issues. Support Systems: FOB is reported as a strong support system, in addition to the MOB mother who is currently in watching the MOB older child would occur. MOB reports her mother is a psychiatrist practicing in the [facility] [place], so another support. MOB and FOB reported to have good friends and a good muslim group as well. ASSESSMENT: Met with the MOB and FOB together, introducing to self and social work role. MOB and FOB both actively engaged in conversation, pleasant, cooperative with good eye contact. MOB and FOB both talkative and appearing to be self aware of the importance of open communication with each other. MOB and FOB both discussed efforts to address their respective emotional health needs. Observed both MOB and FOB to take care of and handled the baby. Both were calm and appropriate and gentle. MOB discussed this delivery and hospital experience, and reports to feel her anxiety is not managed at this point as compared to first delivery. MOB able to identify some healthy coping skills, and intends to continue with these things. Supportive listening and reflection offered and provided to both parents. During private conversation with the MOB was able to address [place] depression screen and domestic violence questions. MOB and FOB reported to have needed supplies, and adequate support upon home-going. FOB has not extended any from work in order to help MOB at home during her maternity leave. No voiced concerns from nursing staff regarding parent-child interactions or bonding. Educated to mood and anxiety disorders, as well as that fathers are also at risk for this. Provided home-going resources including counseling agencies and online support. Parents are aware of shaken baby prevention/safe sleeping. PLAN: MOB and will discharge home when ready. Home-going resources provided for mood and anxiety disorders. MOB aware of the importance of seeking support if symptoms arise. No other services requested or indicated. -CARLI Crandall MSW *Information documented in this assessment generated with [employer]*
[2021-01-26 02:15] VITALS: BP 125/80; PULSE 73; RESP 16; TEMP 37.3
[2021-01-26] MEDS: Ibuprofen 600 MG Tablet PO (02:25)
--- NOTE | 2021-01-26 08:43 | PCM.PN.OB ---
Subjective Subjective Patient seen at bedside. infant at this time. Ambulating and voiding without difficulty. Lochia decreased. Patient desires discharge home today. Objective Data Objective Data Vital Signs: Vital Signs Temp Pulse Resp BP Pulse Ox 99.1 F 73 16 125/80 H 99 01/26/21 02:15 01/26/21 02:15 01/26/21 02:15 01/26/21 02:15 01/25/21 03:30 Oxygen Delivery Method Room Air Weight: 253 lb 8.505 oz Body Mass Index (BMI) 41.5 Intake & Output: Intake and Output for Last 24 Hours 01/24/21 01/25/21 01/26/21 23:59 23:59 23:59 Intake Total 4739.94 / 4739.94 Output Total 1050 / 1050 1350 / 1350 Balance 3689.94 / 3689.94 -1350 / -1350 Lab / Micro Data Result Diagrams: 01/25/21 14:00 01/24/21 08:15 Labs: Laboratory Results - last 24 hr 01/25/21 14:00: WBC 8.9, RBC 3.42 L, Hgb 10.5 L, Hct 32.1 L, MCV 93.9, MCH 30.7, MCHC 32.7, RDW Std Deviation 48.4 H, RDW Coeff of Lora 14.3, Plt Count 220, MPV 10.9 ROS Eyes Eyes: Denies blurry vision, change in vision or spots in vision ENT HEENT: Denies dizziness or headache(s) Cardiovascular Cardiovascular: Denies abdominal pain, chest pain or dyspnea Respiratory/Chest Respiratory/Chest: Denies cough, dyspnea, shortness of breath at rest or shortness of breath with exertion Gastrointestinal Gastrointestinal: Denies abdominal pain, diarrhea or vomiting Genitourinary Genitourinary: Denies change in urinary stream, difficulty urinating or dysuria Musculoskeletal Musculoskeletal: Reports none Integumentary Integumentary: Denies rash Neurologic Neurologic: Denies dizziness, headache(s), memory loss or weakness Physical Exam Const alert and no apparent distress General Appearance: cooperative and comfortable Exam Limitations: no limitations HEENT normocephalic Eyes General Eye: normal appearance of both eyes Neck full ROM General: normal visual inspection Chest Chest: symmetrical chest wall rise Resp normal respiratory effort and normal air movement Effort and Inspection: symmetric chest movement Auscultation: clear to auscultation bilaterally Cardio regular rate and regular rhythm GI normal to inspection, nondistended, normoactive bowel sounds Back/Spine normal ROM Extremity full ROM and no calf tenderness General Extremity: normal exam except as noted Skin no rashes or lesions noted Neuro CN's II-XII intact bilaterally Psych mental status grossly normal Assessment & Plan (1) (spontaneous vaginal delivery): (2) Delivery outcome of liveborn : (3) Second degree laceration of perineum, delivered, current hospitalization: PLAN: PPD #2 Routine care support Discharge home with follow up in office
--- NOTE | 2021-01-26 08:48 | PCM.DC ---
Discharge Instructions Diet Discharge Diet: No restrictions Activity May resume sexual activity in: 6-8 weeks Weight Bearing Status: Weight bearing as tolerated Dressing / Incision Call your doctor if you observe: Fever of 101 or Higher, Inability to urinate, Using more than 1 pad per hour, Shortness of breath, Chest pain, Calf discomfort and Uncontrolled pain Follow Up Care Please Follow Up With: Jaylin Trevino CNM When: 2 weeks virtual visit/ 6 weeks in office Test Results: Test results from this visit will be discussed in further detail at your follow-up appointment, if applicable. Discharge Plan Admission Admit Date/Time: 01/24/21 07:18 Primary Reason for Your Visit: Induction of labor Attending Provider: Maria Kong Primary Care Provider: Care Physician,No Primary Instructions Patient Instructions: After a Vaginal , Depression, After Delivery Concerns, : Caring for Yourself Discharge Orders/Prescriptions Prescriptions: Continued vit,[id number] 1 TABLET tablet 1 tab PO DAILY RF: 0 Discontinued acetaminophen [Tylenol] 325 mg Tablet 650 mg PO Q6H PRN (Reason: Pain) RF: 0 calcium carbonate [Tums] 300 mg (750 mg) Tablet,Chewable 300 mg PO DAILY PRN (Reason: heartburn/reflux) RF: 0 Referrals / Follow Up: Care Physician,No Primary [Primary Care Provider] - Disposition Disposition (needs filled in before D/C Order can be placed): Home, Self Care
[2021-01-26 08:51] VITALS: BP 128/75; PULSE 82; RESP 16; TEMP 36.7; O2SAT 94
--- NOTE | 2021-01-26 08:53 | NURSING ---
Late entry documentation due to busy unit and high pt acuity.
== END 2021-01-26 10:05 | disposition home or self-care (01) | DRG 807 ==
PROVIDERS: Admitting Provider Obstetrics & Gynecology; Referring Provider Obstetrics & Gynecology; Visit Provider Obstetrics & Gynecology
DX: O40.3XX0 Polyhydramnios, third trimester, not applicable or unspecified (principal); O99.214 Obesity complicating childbirth; E66.9 Obesity, unspecified; O14.04 Mild to moderate pre-eclampsia, complicating childbirth; O70.1 Second degree perineal laceration during delivery; O69.81X0 Labor and delivery complicated by cord around neck, without compression, not applicable or unspecified; Z37.0 Single live birth; Z3A.38 38 weeks gestation of pregnancy
CPT/HCPCS: 59025; 59050; 82565; 82570; 84156; 84450; 84460; 84550; 85025; 85027; 86850; 86900; 86901; 99218; J7120; A4216; G0378; J2405